=== PATIENT | female | born 1945 | race Caucasian/White ===

== ENCOUNTER 2019-12-04 14:38 | Emergency (ER) | payer BC ==
[~2019-12-04] VITALS: Ht 149.9 cm; Wt 68.0 kg
[2019-12-04 14:38] VITALS: BP_SYST 134
--- NOTE | 2019-12-04 14:38 | NUR ---
PLACED IN BED 3, TRIAGED AT BEDSIDE
--- NOTE | 2019-12-04 14:50 | NUR ---
FRANCHESCA Johnson at bedside examining patient.
--- NOTE | 2019-12-04 15:06 | NUR ---
Pt in [facility] with side rails up. Alert and oriented. Denies any pain at this time. Stated that she only felt that she could not swollow well earlier and it gave her anxiety.
[2019-12-04 15:21] LABS: BASOPHILS % (AUTO) 0.4 % (0.0-2.0); EOSINOPHILS # (AUTO) 0.6 K/uL (0.0-0.4); EOSINOPHILS % (AUTO) 5.4 % (0.0-4.0); HEMOGLOBIN 10.5 g/dL (12.0-16.0); LYMPHOCYTES # (AUTO) 1.8 K/uL (1.0-5.5); MEAN CORPUSCULAR HEMOGLOBIN 27 pg (27-31); MEAN CORPUSCULAR HGB CONC 32 % (32-36); MEAN CORPUSCULAR VOLUME 86 fL (79.0-98.0); MONOCYTES # (AUTO) 0.8 K/uL (0.0-1.0); MONOCYTES % (AUTO) 7.3 % (1.7-9.3); NEUTROPHILS # (AUTO) 7.3 K/uL (1.8-7.7); NEUTROPHILS % (AUTO) 69.9 % (40.0-70.0); PLATELET COUNT (AUTO) 204 K/uL (130-430); RED BLOOD CELL COUNT(AUTO) 3.85 MIL/uL (4.2-6.2); RED CELL DISTRIBUTION WIDTH 15.7 % (9.0-15.0); WHITE BLOOD COUNT (AUTO) 10.4 K/uL (4.8-10.8)
--- NOTE | 2019-12-04 15:28 | NUR ---
sitting up in gurney. Alert and oriented. Denies any pain at this time.
[2019-12-04 15:30] LABS: ANION GAP 7 (5-15); CALCIUM 8.8 mg/dL (8.4-11.0); CHLORIDE 99 mmol/L (98-107); CREATININE 1.37 mg/dL (0.55-1.30); GLUCOSE 124 mg/dL (70-99); POTASSIUM 3.8 mmol/L (3.5-5.1); SODIUM SERUM 137 mmol/L (136-145); UREA NITROGEN, BLOOD 60 mg/dL (8-21)
[2019-12-04 15:41] LABS: ALANINE AMINOTRANSFERASE 19 U/L (12-78); ALBUMIN 2.8 g/dL (3.4-4.8); ASPARTATE AMINOTRANSFERASE 21 U/L (10-37); TOTAL BILIRUBIN 0.5 mg/dL (0.0-1.0)
[2019-12-04] MEDS ORDERED: LORazepam 1 MG TABLET PO ONE (15:45)
[2019-12-04 16:28] VITALS: BP_SYST 107
== END 2019-12-04 16:28 | disposition home or self-care (01) ==
LOC: SED 14:38
DX: F41.9 Anxiety disorder, unspecified (principal); R06.02 Shortness of breath; I10 Essential (primary) hypertension; E78.5 Hyperlipidemia, unspecified
CPT/HCPCS: 36415; 71045; 80053; 83880; 84484; 85025; 93005; 99285